=== PATIENT | male | born 1975 | race Caucasian/White ===

== ENCOUNTER 2021-08-02 14:32 | Emergency (ER) | payer SELFPAY ==
--- NOTE | 2021-08-02 15:03 | EDM.PDOC ---
<Boris Avilez - Last Filed: 08/02/21 19:10> ED HPI GENERAL MEDICAL PROBLEM - General Chief Complaint: Neurological Problem Stated Complaint: PT CANT FEEL FROM HIS WAIST DOWN Time Seen by Provider: 08/02/21 14:36 - History of Present Illness INITIAL COMMENTS - FREE TEXT/NARRATIVE: History of present illness: [] The patient with chronic back pain his 2 months of increasing numbness in his legs and for 2 days he has lost some of the strength in both legs and cannot support his own weight. He has numbness in the thigh and numbness in the calf on both sides. He on 01/08/2015 had a MRI of his lumbar spine showing L4-5 disc protrusion with extensive narrowing of the spinal canal and L5-S1 disc protrusion with mild narrowing of the spinal canal. He is also suffering erectile dysfunction. Review of systems: As per history of present illness and below otherwise all systems reviewed and negative. Past medical history: As per history of present illness and as reviewed below otherwise noncontribut ory. Surgical history: As per history of present illness and as reviewed below otherwise noncontributory. Social history: No reported history of drug or alcohol abuse. Family history: As per history of present illness and as reviewed below otherwise noncontributory. Physical exam: Constitutional - well developed, well-nourished and in no acute distress HEENT - normocephalic, no evidence of trauma - external nose and mouth normal - no mass in neck and no JVD - mucosae moist EYES - full EOM, PERRL, no icterus - no evidence of inflammation, injection, or drainage Respiratory - no respiratory distress, equal bilateral expansion, lungs clear to auscultation and no abnormal lung sounds Cardiovascular - Regular Rhythm with S1 and S2 appreciated and no murmur, gallop or rub. GI - abdomen soft without distension or organomegaly - normal bowel sounds - no guard or rebound Musculoskeletal no gross deformity of long bones or joints - no tenderness, swelling or edema Neurologic - Alert and oriented times four - CN II-XII grossly intact - motor sensory and coordination symmetrical but patient notes weakness and says he cannot support his weight. Straight leg raise negative for radicular pain Psychiatric - appropriate mood and affect with normal thought content Hematologic - No petechiae or purpura - mucosa appropriate color and sclera not pale - normal nail bed color and refill Integument - no rash or evidence of trauma - normal turgor Diagnostics: [] Therapeutics: [] Impression: [] Plan: [] Definitive disposition and diagnosis as appropriate pending reevaluation and review of above. - Related Data Allergies Allergy/AdvReac Type Severity Reaction Status Date / Time No Known Allergies Allergy Verified 08/02/21 14:58 Home Meds: Home Meds Cyclobenzaprine [Flexeril] 10 mg PO BEDTIME 08/02/21 [History] Diclofenac Submicronized [Diclofenac] 35 mg PO DAILY 08/02/21 [History] traMADol [Ultram] 50 mg PO Q6H PRN 08/02/21 [History] ED ROS GENERAL - Review of Systems Review Of Systems: Comprehensive ROS is negative, except as noted in HPI. ED EXAM, GENERAL - Physical Exam Exam: See Below Free Text/Narrative:: My physical exam is in the HPI Course - Re-Assessments/Exams Free Text/Narrative Re-Assessment/Exam: 08/02/21 19:02 Radiology called me at 1859 hrs. 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 This is compatible with his inability to support his weight. Discussed with neurosurgery Dr Leyva in [place]. 08/02/21 19:10 Departure - Departure Disposition: DC/[facility]fer to Acute [facility] 02 Clinical Impression: Lumbar cord compression - Discharge Information Referrals: PCP,None [Primary Care Provider] - Forms: ED Department Discharge Sepsis Event Note (ED) - Evaluation Sepsis Screening Result: No Definite Risk <Danny Salgado - Last Filed: 08/02/21 19:56> #1 Interpretation EKG Date: 08/02/21 Time: 19:37 Rhythm: NSR Rate (Beats/Min): 84 ST-T: Normal Course - Vital Signs Last Recorded V/S: Last Vital Signs Temp 97.9 F 08/02/21 18:49 Pulse 84 08/02/21 18:49 Resp 16 08/02/21 18:49 BP 112/69 08/02/21 18:49 Pulse Ox 94 L 08/02/21 18:49 - Orders/Labs/Meds Orders: Active Orders 24 hr Category Date Time Status Bladder Scan [RC] ASDIRECTED Care 08/02/21 19:39 Active EKG Documentation Completion [RC] AM Care 08/02/21 19:08 Active Chest 1V Frontal [CR] Stat Exams 08/02/21 19:10 Ordered CBC WITH AUTO DIFF [HEME] Stat Lab 08/02/21 19:08 Ordered COMPREHENSIVE METABOLIC PN,CMP [CHEM] Stat Lab 08/02/21 19:08 Ordered INR,PT,PROTHROMBIN TIME [COAG] Stat Lab 08/02/21 19:08 Ordered PTT,PARTIAL THROMBOPLSTIN TIME [COAG] Stat Lab 08/02/21 19:09 Ordered UA W/JOHN RFLX IF INDICATED [URIN] Stat Lab 08/02/21 19:41 Received Sodium Chloride 0.9% [Saline Flush] Med 08/02/21 19:08 Active 10 ml FLUSH ASDIRECTED PRN Sodium Chloride 0.9% [Saline Flush] Med 08/02/21 19:08 Active 2.5 ml FLUSH ASDIRECTED PRN Saline Lock Insert [OM.PC] Stat Oth 08/02/21 19:08 Ordered Medication Orders Sodium Chloride (Sodium Chloride 0.9% 10 Ml Syringe) 10 ml FLUSH ASDIRECTED PRN PRN Reason: Keep Vein Open Sodium Chloride (Sodium Chloride 0.9% 2.5 Ml Syringe) 2.5 ml FLUSH ASDIRECTED PRN PRN Reason: Keep Vein Open Labs: Laboratory Tests 08/02/21 Range/Units 19:05 SARS-CoV-2 RNA (FELIPE) POSITIVE H (NEGATIVE) Meds: Medications Generic Name Dose Route Start Last Admin Trade Name Freq PRN Reason Stop Dose Admin Sodium Chloride 10 ml 08/02/21 19:08 Sodium Chloride 0.9% 10 Ml Syringe FLUSH ASDIRECTED PRN Keep Vein Open Sodium Chloride 2.5 ml 08/02/21 19:08 Sodium Chloride 0.9% 2.5 Ml Syringe FLUSH ASDIRECTED PRN Keep Vein Open Discontinued Medications Generic Name Dose Route Start Last Admin Trade Name Freq PRN Reason Stop Dose Admin Hydromorphone HCl 1 mg 08/02/21 16:54 08/02/21 17:04 Hydromorphone 1 Mg/Ml Syringe IM 08/02/21 16:55 1 mg ONETIME ONE Administration Lorazepam 2 mg 08/02/21 16:53 08/02/21 17:04 Lorazepam 2 Mg/Ml Sdv IM 08/02/21 16:54 2 mg ONETIME ONE Administration - Re-Assessments/Exams Free Text/Narrative Re-Assessment/Exam: 08/02/21 19:23 Pt does not have a rectal tone. 08/02/21 19:55 Postvoid residual is [address] [facility] and been excepted by neurosurgery patient will be transferred Departure - Departure Time of Disposition: 19:55 Condition: Good Sepsis Event Note (ED) - Focused Exam Vital Signs: Vital Signs Temp Pulse Resp BP Pulse Ox 08/02/21 18:49 97.9 F 84 16 112/69 94 L 08/02/21 15:52 97 124/75 91 L 08/02/21 15:02 104 H 142/88 H 92 L 08/02/21 14:47 98 F 116 H 20 126/81 92 L - My Orders Last 24 Hours: My Active Orders 08/02/21 19:39 Bladder Scan [RC] ASDIRECTED - Assessment/Plan Last 24 Hours: My Active Orders 08/02/21 19:39 Bladder Scan [RC] ASDIRECTED
[2021-08-02] MEDS ORDERED: LORazepam 2 MG/ML SDV IM ONE (16:53)
[2021-08-02] MEDS ORDERED: HYDROmorphone 1 MG/ML Syringe IM ONE (16:54)
--- NOTE | 2021-08-02 18:00 | MR ---
Indication: NUMBNESS IN LOWER EXTREMITIES AFTER COUGH. Technique: Noncontrast sagittal T1, T2, STIR and axial T2 sequences are provided. Comparison: No prior studies available for comparison at this institution. Findings: Image quality is degraded by motion artifact. The overall stature, alignment and intrinsic marrow signal of the thoracic spine is within normal limits. No suspicious disc bulges or protrusions. No suspicious central canal or foraminal narrowing. The thoracic cord is normal in size, signal, and contour. There is a 1.5 cm AP x 1.3 cm TR x 1.8 cm CC T2 hypointense presumed ossific structure associated with the left 6th and 7th ribs that indents the left posterolateral pleura (series 901 image 12). There is apparent edema in the adjacent left posterior medial left lower lobe. Consider dedicated CT chest with contrast for further evaluation. Impression: 1. No evidence of disc bulge or herniation. No spinal canal stenosis or neural foraminal narrowing. No fractures. 2. Normal thoracic spinal cord. 2. There is a presumed ossific structure associated with the left 6th and 7th ribs that indents the left posterolateral pleura (series 901 image 12). There is apparent edema in the adjacent left posterior medial left lower lobe. Consider dedicated CT chest with contrast for further evaluation. Dictated by Omari Richards MD @ 08/02/2021 6:00:11 PM (Electronically Signed)
--- NOTE | 2021-08-02 19:03 | MR ---
HISTORY: Lower extremity numbness after cough. Patient in pain and unable walk. COMPARISON: None available TECHNIQUE: MR examination of the lumbar spine was performed without contrast enhancement using a standard protocol. FINDINGS: T12-L1: Normal. L1-2: Normal. L2-3: Normal. L3-4: Mild spinal stenosis from a mild broad disc bulging. Mild disc bulging extends into the foraminal zones bilaterally, left greater than right, without impingement upon the exiting nerve roots. Mild edema in the posterior vertebral bodies adjacent to the disc space indicating mild ongoing degeneration. L4-5: Previous broad central laminectomy at this level. Spinal block produced by a massive central disc herniation with a large amount of disc material extruded both superiorly and inferiorly. There is more disc material extruded superiorly, reaching the superior L4 level. The disc material extruded inferiorly extends just below the level of the disc space. The thecal sac is completely effaced mild the disc herniation. There is also mild diffuse disc bulging with mild extension into the foraminal zones bilaterally, without impingement on the exiting nerve roots. Mild loss of disc height from disc degenerative disease. Moderate edema in the vertebral bodies adjacent to the disc space indicating ongoing degeneration. L5-S1: Previous broad central laminectomy at this level. Mild diffuse disc bulging without contact with the anterior thecal sac. No spinal stenosis. Moderate bilateral lateral bulging into the foraminal zone without contact with the exiting nerve roots. Mild L5-S1 disc degenerative disease. Mild edema in the posterior and bilateral lateral vertebral bodies adjacent to the disc space indicating ongoing degeneration. The lumbar vertebral bodies are normal in height and they are in anatomic alignment. The conus is normal in appearance. I discussed the findings with Dr. Avilez at 1900 hours on 08/02/2021. IMPRESSION: Spinal block at L4-5 produced by a massive disc herniation with a large amount of disc material extruded superiorly and a mild amount of disc material extruded inferiorly from the disc space. Mild spinal stenosis at L3-4. Status post broad central laminectomy at L4-5 and L5-S1. Dictated by Tony Cochran MD @ 08/02/2021 7:01:50 PM (Electronically Signed)
[2021-08-02] MEDS ORDERED: Sodium Chloride 0.9% 2.5 ML Syringe FLUSH PRN (19:08)
[2021-08-02] MEDS ORDERED: Sodium Chloride 0.9% 10 ML Syringe FLUSH PRN (19:08)
[2021-08-02 20:03] VITALS: BP 120/71; PULSE 86
--- NOTE | 2021-08-02 20:49 | CR ---
INDICATION: preop TECHNIQUE: Chest 1 view. COMPARISON: None. FINDINGS: Cardiovascular and mediastinum: Heart size and vasculature are normal in caliber and appearance. Mediastinum is within normal limits. Lungs and pleural space: Lungs are clear. No sign of infiltrate or mass. No sign of pleural effusion. No pneumothorax. Bones and soft tissues: No significant findings. IMPRESSION: Unremarkable chest. Dictated by: Omari Pearl MD @ 08/02/2021 20:47:54 (Electronically Signed)
== END 2021-08-02 20:49 ==
LOC: MW.ED 14:32
DX: U07.1 COVID-19 (principal); G95.20 Unspecified cord compression
CPT/HCPCS: 51798; 71045; 72146; 72148; 81001; 87635; 93005; 96372; 99285; J1170; J2060; U0002